=== PATIENT | male | born 1930 | race African-American/Black ===

== ENCOUNTER 2019-02-02 18:56 | Emergency (ER) | payer BC, MEDICAID, MEDICARE, OTHER ==
[~2019-02-02] VITALS: Ht 175.3 cm; Wt 84.0 kg
[2019-02-02 20:30] LABS: BASOPHILS % 0.6 % (0.0-2.0); EOSINOPHILS % 2.3 % (0.0-5.0); HEMATOCRIT. 42.5 % (42.0-52.0); HEMOGLOBIN. 14.4 g/dL (14.0-18.0); LYMPHOCYTES % 35.2 % (20.0-50.0); MEAN PLATELET VOLUME 8.9 fl (7.4-10.4); MONOCYTES % 10.5 % (2.0-8.0); NEUTROPHILS % 51.4 % (40.0-76.0); PLATELET 193 x1000/uL (130-400); RED BLOOD CELL COUNT 4.52 mill/uL (4.7-6.1); RED CELL DISTRIBUTION WIDTH 13.9 % (11.6-14.6)
[2019-02-02 20:34] LABS: CHLORIDE 114 mEq/L (98-107)
[2019-02-02 20:36] LABS: PROTHROMBIN TIME 10.5 sec (9.6-11.0)
[2019-02-02 23:26] VITALS: BP 170/80
== END 2019-02-02 23:34 | disposition short-term general hospital (02) ==
LOC: ER 18:56
DX: R55 Syncope and collapse (principal); I48.92 Unspecified atrial flutter; R79.89 Other specified abnormal findings of blood chemistry; I10 Essential (primary) hypertension; E11.9 Type 2 diabetes mellitus without complications; E78.00 Pure hypercholesterolemia, unspecified
CPT/HCPCS: 36415; 71045; 83880; 84484; 93005; 99285